=== PATIENT | female | born 1960 | race Caucasian/White ===

== ENCOUNTER → 2017-01-19 | Outpatient (CLI) | payer OTHER | LOC: FIMAGING 09:55 | PROVIDERS: ATTEND Physician Assistant | DX: K80.20 Calculus of gallbladder without cholecystitis without obstruction (principal) ==

== ENCOUNTER → 2017-08-01 | Outpatient (CLI) | payer OTHER | LOC: FIMAGING 14:48 | PROVIDERS: ATTEND Internal Medicine | DX: Z12.31 Encounter for screening mammogram for malignant neoplasm of breast (principal) | CPT/HCPCS: G0202 ==

== ENCOUNTER 2017-08-14 11:09 | Observation (INO) | payer OTHER ==
[2017-08-14] MEDS ORDERED: LORazepam 2 MG/ML INJ ONE (11:56)
[2017-08-14] MEDS ORDERED: LORazepam 2 MG/ML INJ IVP ONE (11:58)
--- NOTE | 2017-08-14 11:58 | EDPHY ---
H & P Time Seen by Provider: 08/14/17 11:44 HPI/ROS: CHIEF COMPLAINT: Seizure, withdrawal HISTORY OF PRESENT ILLNESS: Patient is a 56-year-old female who presents to the emergency department stating "I am withdrawing. "Patient has been chronically taking a large amount of Ativan. Reportedly 30 mg a day. Patient also takes Ambien, Lexapro and Wellbutrin. She ran out of her Ambien and Lexapro. Patient states she has been feeling worse over the past few days. She ran medication because her prescriptions ran out and the doctor would not refill her prescriptions without being seen. She has been unable to get to the doctor's office. She called her daughter this morning. When her daughter arrived the patient was found on the floor. It is unclear how she got there. The patient does not recall. While the daughter was talking to her the patient had seizure-like activity and EMS was called. Patient has a mild headache. She has diffuse body aches. She is nauseated. REVIEW OF SYSTEMS: My complete review of systems is negative except as mentioned in the HPI. Past Medical/Surgical History: Includes diabetes, migraines, PID, hypertension Past surgical history: Pituitary cyst removed Social history: The patient does not smoke use alcohol. Smoking Status: Never smoked Physical Exam: Vitals noted. 37.3, 103/68, 114, 16, 98% on room air GENERAL: Mild acute distress, alert. HEENT: Eyes normal to inspection, normal pharynx, no signs of dehydration. NECK: No thyromegaly, no lymphadenopathy, supple. RESPIRATORY: Clear to auscultation bilaterally, no rales, rhonchi or wheezing. CVS: Regular rate and rhythm, no rubs, murmurs, or gallops. ABDOMEN: Soft, nontender, nondistended, no organomegaly. BACK: Normal to inspection, no CVA tenderness. SKIN: Normal color, no rash, warm, dry. No pallor. EXTREMITIES: No pedal edema, no calf tenderness, no Homans sign or cords, no joint swelling. NEURO/PSYCH: Higher functions: Eyes closed but open to voice. Oriented x3. Normal speech and cognition. Normal mood and affect. Cranial nerves: Normal as tested. Cerebellar: Normal as tested. Good finger to nose, good [id number], normal gait. Peripheral exam: Normal motor exam. Normal sensation. Normal reflexes. Constitutional: Initial Vital Signs Temperature (C) 37.3 C 08/14/17 11:39 Heart Rate 114 H 08/14/17 11:39 Respiratory Rate 16 08/14/17 11:39 Blood Pressure 103/68 08/14/17 11:39 O2 Sat (%) 98 08/14/17 11:39 O2 Delivery Mode Room Air Allergies/Adverse Reactions: codeine [Codeine] Allergy (Verified 01/05/17 14:57) Penicillins Allergy (Verified 01/05/17 14:57) Sulfa (Sulfonamide Antibiotics) Allergy (Verified 01/05/17 14:57) Home Medications: Medication Instructions Recorded Ambien 12/09/10 Ativan 12/09/10 Azithromycin [Zpack 250 mg] 250 mg PO DAILY #6 tab 12/09/10 DDAVP 12/09/10 TRAMADOL HCL 12/09/10 Doxycycline Hyclate 01/05/17 Jinteli 1 mg-5 Mcg Tablet 01/05/17 Lexapro 01/05/17 Metoprolol Tartrate 01/05/17 Nexium 01/05/17 Wellbutrin 100mg (*) 01/05/17 Medical Decision Making - Diagnostics Imaging Results: Imaging Impressions Head CT 08/14/17 11:59 Impression: Mild underlying atrophy, otherwise negative noncontrast CT of the brain. Results called to Dr. Rosy Alexander at 1:49 PM at the time of the interpretation. ED Course/Re-evaluation: In the emergency department I discussed possible etiologies with the patient and her family. I answered all her questions. IV was placed. Laboratory studies obtained. Normal saline 1 L IV for hydration. The patient was given Zofran 4 mg IV for nausea. The patient was given Ativan 1 mg IV for withdrawal. The nursing staff had difficulty obtaining an IV. Because of this patient was given Ativan 2 mg orally. Ultimately a small line was placed the patient's ankle. On recheck the patient was feeling anxious. She was given Ativan 1 mg IV. 13 40: The patient complains of a typical migraine headache per nursing. She requested Maxalt. This is not in our formulary. I went to re-evaluate the patient however Dr. Gaspar from the Hospital service was evaluated the patient because I called him regarding admission. Differential Diagnosis: My differential includes but is not limited to benzodiazepine withdrawal, alcohol withdrawal, epilepsy, electrolyte abnormality, sugar abnormality, DKA, subarachnoid hemorrhage, subdural hematoma, epidural hematoma, CVA - Data Points Laboratory Results: Laboratory Results 08/14/17 12:25 08/14/17 12:25 08/14/17 08/14/17 12:25 12:25 WBC REJ RBC REJ Hgb REJ Hct REJ MCV REJ MCH REJ MCHC REJ RDW REJ Plt Count REJ MPV REJ Neut % (Auto) REJ Lymph % (Auto) REJ Floyd % (Auto) REJ Eos % (Auto) REJ Baso % (Auto) REJ Nucleat RBC Rel Count REJ Absolute Neuts (auto) REJ Absolute Lymphs (auto) REJ Absolute Monos (auto) REJ Absolute Eos (auto) REJ Absolute Basos (auto) REJ Absolute Nucleated RBC REJ Immature Gran % REJ Immature Gran # REJ Sodium 129 mEq/L L mEq/L (134-144) Potassium 4.1 mEq/L mEq/L (3.5-5.2) Chloride 94 mEq/L L mEq/L (97-110) Carbon Dioxide 17 mEq/l L mEq/l (22-31) Anion Gap 18 mEq/L H mEq/L (8-16) BUN 13 mg/dL mg/dL (7-23) Creatinine 0.8 mg/dL mg/dL (0.6-1.0) Estimated GFR > 60 Glucose 119 mg/dL H mg/dL (70-100) Calcium 9.1 mg/dL mg/dL (8.5-10.4) Salicylates < 1.0 mg/dL L mg/dL (2.0-20.0) Acetaminophen < 10 mcg/mL L mcg/mL (10-30) Ethyl Alcohol < 10 mg/dL mg/dL (0-10) Medications Given: Discontinued Medications Sodium Chloride (Ns) 1,000 mls @ 0 mls/hr IV ONCE ONE PRN Reason: Wide Open Stop: 08/14/17 12:48 Last Admin: 08/14/17 12:48 Dose: 1,000 mls Lorazepam (Ativan Injection) 1 mg IVP EDNOW ONE Stop: 08/14/17 11:59 Last Admin: 08/14/17 12:44 Dose: 1 mg Lorazepam (Ativan) 2 mg PO EDNOW ONE Stop: 08/14/17 12:20 Last Admin: 08/14/17 12:20 Dose: 2 mg Ondansetron HCl (Zofran) 4 mg IVP EDNOW ONE Stop: 08/14/17 12:00 Last Admin: 08/14/17 12:35 Dose: 4 mg Departure - Departure Disposition: [facility] Inpatient Acute Clinical Impression: Migraine Benzodiazepine withdrawal Qualifiers: Complication of substance-induced condition: uncomplicated Qualified Code(s): F13.230 - Sedative, hypnotic or anxiolytic dependence with withdrawal, uncomplicated Condition: Good Referrals: Jennifer Millard MD [Primary Care Provider] - As per Instructions
[2017-08-14] MEDS ORDERED: ONDANSETRON 4 MG/2 ML VIAL IVP ONE (11:59)
[2017-08-14] MEDS ORDERED: LORazepam 1 MG TAB ONE (12:11)
[2017-08-14] MEDS ORDERED: LORazepam 1 MG TAB PO ONE (12:19)
--- NOTE | 2017-08-14 12:38 | CPEKG ---
Heart Rate: 104 RR Interval: 577 P-R Interval: 156 QRSD Interval: 88 QT Interval: 384 QTC Interval: 506 P Como: 73 QRS Como: -2 T Wave Como: 73 EKG Severity - BORDERLINE ECG - EKG Impression: SINUS TACHYCARDIA EKG Impression: BORDERLINE T ABNORMALITIES, ANT-LAT LEADS EKG Impression: BORDERLINE PROLONGED QT INTERVAL Electronically Signed By: Rosy Alexander 14-Aug-2017 15:20:40
[2017-08-14] MEDS ORDERED: NS 1,000 ML IV ONE ×2 (12:47→13:52)
[2017-08-14 12:57] LABS: ANION GAP 18 mEq/L (8-16); CALCIUM 9.1 mg/dL (8.5-10.4); CARBON DIOXIDE 17 mEq/l (22-31); CHLORIDE 94 mEq/L (97-110); CREATININE 0.8 mg/dL (0.6-1.0); ETHANOL SERUM < 10 mg/dL (0-10); GLOMERULAR FILTRATION RATE > 60; GLUCOSE 119 mg/dL (70-100); POTASSIUM 4.1 mEq/L (3.5-5.2); SALICYLATE < 1.0 mg/dL (2.0-20.0); SODIUM 129 mEq/L (134-144)
--- NOTE | 2017-08-14 14:10 | PDGENHP ---
History and Physical - Chief Complaint Seizure - History of Present Illness A 48-year-old female with longstanding history of anxiety a presented to the emergency department today after having seizure. Patient does not recall what happened but remembers awaking on the floor. Apparently she has been taking upwards of 40 mg of Ativan per day. He she reports ran out of her prescription and has been off of her med since . Since being off of her Ativan she has been very anxious with some chills. She has tried to quit in "cold turkey "before. She denies any suicidal or homicidal ideation. Her daughter states that she may have aspirated while she seized. She has been on benzodiazepines for approximately 8 years. History Information - Allergies/Home Medication List Allergies/Adverse Reactions: codeine [Codeine] Allergy (Verified 01/05/17 14:57) Penicillins Allergy (Verified 01/05/17 14:57) Sulfa (Sulfonamide Antibiotics) Allergy (Verified 01/05/17 14:57) Home Medications: Ambien 12/09/10 [Last Taken 12/08/10 21:00] Ativan 12/09/10 [Last Taken 12/09/10 07:00] DDAVP 12/09/10 [Last Taken 12/09/10 07:00] TRAMADOL HCL 12/09/10 [Last Taken 12/09/10 07:00] Doxycycline Hyclate 01/05/17 [Last Taken Unknown] Jinteli 1 mg-5 Mcg Tablet 01/05/17 [Last Taken Unknown] Lexapro 01/05/17 [Last Taken Unknown] Metoprolol Tartrate 01/05/17 [Last Taken Unknown] Nexium 01/05/17 [Last Taken Unknown] Wellbutrin 100mg (*) 01/05/17 [Last Taken Unknown] I have personally reviewed and updated: family history, medical history, social history, surgical history Past Medical History: Anxiety, depression, diabetes insipidus, pituitary cyst - Surgical History Additional surgical history: Pituitary cyst resection - Social History Smoking Status: Never smoked Alcohol Use: None Review of Systems Review of Systems: ROS: 10pt was reviewed & negative except for what was stated in HPI & below Physical Exam Physical Exam: Temp Pulse Resp BP Pulse Ox 37.3 C 114 H 16 103/68 98 08/14/17 11:39 08/14/17 11:39 08/14/17 11:39 08/14/17 11:39 08/14/17 11:39 Constitutional: no apparent distress, appears nourished, not in pain, uncomfortable Eyes: PERRL, anicteric sclera, EOMI Ears, Nose, Mouth, Throat: moist mucous membranes, hearing normal, ears appear normal, no oral mucosal ulcers, other (No tongue laceration) Cardiovascular: regular rate and rhythym, no murmur, rub, or gallop, tachycardia , No edema Respiratory: no respiratory distress, no rales or rhonchi, clear to auscultation Gastrointestinal: normoactive bowel sounds, soft, non-tender abdomen, no palpable masses, No guarding, No rebound Genitourinary: no bladder fullness, no bladder tenderness Skin: warm, normal color, no rashes or abrasions, no fluctuance, no induration, No mottled Neurologic: AAOx3, CN II-XII Intact, No facial droop Psychiatric: interacting appropriately, not anxious, not encephalopathic, thought process linear, anxious, No suicidal ideation Lymph, Heme, Immunologic: no cervical LAD, no supraclavicular LAD Lab Data & Imaging Review 08/14/17 12:25 08/14/17 12:25 WBC REJ 08/14/17 12:25 RBC REJ 08/14/17 12:25 Hgb REJ 08/14/17 12:25 Hct REJ 08/14/17 12:25 MCV REJ 08/14/17 12:25 MCH REJ 08/14/17 12:25 MCHC REJ 08/14/17 12:25 RDW REJ 08/14/17 12:25 Plt Count REJ 08/14/17 12:25 MPV REJ 08/14/17 12:25 Neut % (Auto) REJ 08/14/17 12:25 Lymph % (Auto) REJ 08/14/17 12:25 [place] % (Auto) REJ 08/14/17 12:25 Eos % (Auto) REJ 08/14/17 12:25 Baso % (Auto) REJ 08/14/17 12:25 Nucleat RBC Rel Count REJ 08/14/17 12:25 Absolute Neuts (auto) REJ 08/14/17 12:25 Absolute Lymphs (auto) REJ 08/14/17 12:25 Absolute Monos (auto) REJ 08/14/17 12:25 Absolute Eos (auto) REJ 08/14/17 12:25 Absolute Basos (auto) REJ 08/14/17 12:25 Absolute Nucleated RBC REJ 08/14/17 12:25 Immature Gran % REJ 08/14/17 12:25 Immature Gran # REJ 08/14/17 12:25 Sodium 129 mEq/L (134-144) L 08/14/17 12:25 Potassium 4.1 mEq/L (3.5-5.2) 08/14/17 12:25 Chloride 94 mEq/L (97-110) L 08/14/17 12:25 Carbon Dioxide 17 mEq/l (22-31) L 08/14/17 12:25 Anion Gap 18 mEq/L (8-16) H 08/14/17 12:25 BUN 13 mg/dL (7-23) 08/14/17 12:25 Creatinine 0.8 mg/dL (0.6-1.0) 08/14/17 12:25 Estimated GFR > 60 08/14/17 12:25 Glucose 119 mg/dL (70-100) H 08/14/17 12:25 Calcium 9.1 mg/dL (8.5-10.4) 08/14/17 12:25 Salicylates < 1.0 mg/dL (2.0-20.0) L 08/14/17 12:25 Acetaminophen < 10 mcg/mL (10-30) L 08/14/17 12:25 Ethyl Alcohol < 10 mg/dL (0-10) 08/14/17 12:25 Imaging Review: Visualized reviewed the head CT that was negative for hemorrhage Assessment & Plan Assessment: This is a 48-year-old female with history of anxiety, depression, and chronic benzodiazepine use to been on 40 mg of Ativan per day but ran out on presenting with: # benzodiazepine withdrawal seizure # benzodiazepine dependence # history of anxiety and depression # mild hyponatremia with history of diabetes insipidus Plan: 1. Place in observation 2. We will resume Ativan at a dose of 5 mg p.o. three times daily 3. Seizure precautions Disposition: Patient will be monitored for seizures. She will need close outpatient follow-up with plan for benzodiazepine taper with her primary care provider Dr. West
[2017-08-14] MEDS: ACETAMINOPHEN 500 MG TAB PO SCH ×2 (15:26→21:17)
[2017-08-14] MEDS ORDERED: RIZATRIPTAN BENZOATE 10 MG PO PRN (19:07)
[2017-08-14] MEDS ORDERED: traMADol 50 MG TAB PO PRN (19:07)
[2017-08-14] MEDS: DESMOPRESSIN 0.1 MG TAB PO SCH (20:20)
[2017-08-14] MEDS: METOPROLOL TARTRATE 25 MG TAB PO SCH (20:21)
[2017-08-14] MEDS: INDOMETHACIN 25 MG CAP PO SCH (20:21)
[2017-08-14] MEDS ORDERED: NON-FORMULARY NEW DRUG (Zolpidem Tartrate [Ambien 10 Mg] 10 MG) PO SCH (21:00)
[2017-08-14] MEDS ORDERED: ZOLPIDEM TARTRATE 5 MG TAB PO SCH (21:00)
[2017-08-14] MEDS: busPIRone 10 MG TAB PO SCH (21:17)
[2017-08-14] MEDS: LORazepam 1 MG TAB PO SCH (21:17)
[2017-08-14] MEDS ORDERED: SUMAtriptan 6 MG/0.5 ML VIAL SC ONE (23:02)
[2017-08-15] MEDS: LORazepam 1 MG TAB PO SCH ×2 (05:16→15:44)
[2017-08-15 05:20] LABS: ALANINE AMINOTRANSFERASE 24 IU/L (9-52); ALBUMIN 3.5 g/dL (3.5-5.0); ALKALINE PHOSPHATASE 76 IU/L (38-126); ANION GAP 8 mEq/L (8-16); ASPARTATE AMINOTRANSFERASE 23 IU/L (14-46); BILIRUBIN,TOTAL 0.4 mg/dL (0.1-1.4); CALCIUM 8.9 mg/dL (8.5-10.4); CARBON DIOXIDE 26 mEq/l (22-31); CHLORIDE 96 mEq/L (97-110); CREATININE 0.7 mg/dL (0.6-1.0); GLOMERULAR FILTRATION RATE > 60; GLUCOSE 98 mg/dL (70-100); POTASSIUM 4.1 mEq/L (3.5-5.2); SODIUM 130 mEq/L (134-144); TOTAL PROTEIN 5.8 g/dL (6.3-8.2)
[2017-08-15 05:54] VITALS: RESP 18
[2017-08-15] MEDS: INDOMETHACIN 25 MG CAP PO SCH (08:11)
[2017-08-15] MEDS: DESMOPRESSIN 0.1 MG TAB PO SCH (08:11)
[2017-08-15] MEDS: METOPROLOL TARTRATE 25 MG TAB PO SCH (08:12)
[2017-08-15] MEDS: ACETAMINOPHEN 500 MG TAB PO SCH (08:13)
[2017-08-15] MEDS: busPIRone 10 MG TAB PO SCH (08:13)
[2017-08-15] MEDS ORDERED: PANTOPRAZOLE SODIUM 40 MG TAB PO SCH (09:00)
[2017-08-15] MEDS ORDERED: NORETHINDRONE AC ETH ESTRADIOL PO SCH (09:00)
[2017-08-15] MEDS ORDERED: NON-FORMULARY NEW DRUG (Escitalopram Oxalate [Lexapro] 20 MG) PO SCH (09:00)
[2017-08-15] MEDS ORDERED: ENOXAPARIN 40 MG/0.4 ML SYR SC SCH (09:00)
[2017-08-15] MEDS ORDERED: MULTIVITAMINS 1 EACH TAB PO SCH (09:00)
[2017-08-15] MEDS ORDERED: NON-FORMULARY NEW DRUG (Esomeprazole Magnesium [Nexium] 20 MG) PO SCH (09:00)
[2017-08-15] MEDS ORDERED: ESCITALOPRAM OXALATE 10 MG TAB PO SCH (09:00)
--- NOTE | 2017-08-15 11:33 | ASMTCMCOM ---
CM Note CM Note Notes: Chart reviewed. Met with patient, her sister and mother. Patient lives with and feels she has good support but wishes to seek care with psychiatry . Call to Moraima Becker RN for support. Patient states she had appointment today with mental health provider. She appears to be sincere in her realization that her situation is problematic and she wants to seek some resolution to the problems. CM to follow. Date Signed: 08/15/2017 11:32 AM Electronically Signed By:Court Reyes RN
[2017-08-15 12:18] VITALS: TEMP 97.8; O2SAT 95
[2017-08-15 13:54] VITALS: BP 163/101; PULSE 93
--- NOTE | 2017-08-15 17:22 | ASDISCHSUM ---
Discharge Information Plan Status:Home with No Needs Medically Cleared to Leave: Discharge Date:08/15/2017 03:52 PM CM D/C Disposition:Home, Routine, Self-Care ADT D/C Disposition:Home, Routine, Self-Care Projected Discharge Date:08/15/2017 03:52 PM Transportation at D/C:Family Discharge Delay Reason: Follow-Up Date:08/15/2017 03:52 PM Discharge Slot: Final Diagnosis: Placement Information Patient Contact Information Contact Name:JOSE MANUEL Relationship: Address:[address] City:[place] Phone: [facility]/Zip Code:[place] [address] Email: Financial Information Financial Class:HMO and PPO Plans Primary Plan Desc:[employer] REYNAGA Primary Plan Number:[id number] Secondary Plan Desc: Secondary Plan Number: Assessment Information LACE LACE Acuity / Level of Care Answers: Was the patient admitted to hospital via the emergency department? Yes: Emergency dept visits in Answers: 0 last 6 months Score: 3 Date Signed: 08/15/2017 11:02 AM Electronically Signed By:Court Reyes RN [facility] Progress Note CM Note CM Note Notes: Chart reviewed. Met with patient, her sister and mother. Patient lives with and feels she has good support but wishes to seek care with psychiatry . Call to Moraima Becker RN for support. Patient states she had appointment today with mental health provider. She appears to be sincere in her realization that her situation is problematic and she wants to seek some resolution to the problems. CM to follow. Date Signed: 08/15/2017 11:32 AM Electronically Signed By:Court Reyes RN Intervention Information
--- NOTE | 2017-08-16 03:09 | GDS ---
[f rep st] DISCHARGE SUMMARY DISCHARGE DIAGNOSES: 1. Benzodiazepine withdrawal-induced seizure. 2. Benzodiazepine dependency. 3. Anxiety and depression. 4. Hyponatremia. 5. Hypertension. STUDIES AND PROCEDURES DONE: CT of the head. PHYSICAL EXAMINATION: GENERAL: The patient is alert. VITAL SIGNS: Afebrile, 36.6, pulse is 93, respiratory rate is 18, blood pressure is 150/89. She is saturating 95% on room air. I have seen and evaluated the patient on the day of discharge. HOSPITAL COURSE: The patient presented to the emergency room after suffering a seizure. She was evaluated and diagnosed with: 1. Benzodiazepine withdrawal seizure. Patient has had a longstanding history of benzodiazepine use with Ativan. It is unclear the amount of milligrams she takes on a daily basis. She is a poor historian regarding this, however she cold-turkeyed her Ativan secondary to running out of her prescription. She did experience a seizure that is felt to be secondary to her benzodiazepine withdrawal. She has had no further seizure activity identified in the hospital setting. She has been reinitiated on Ativan and will continue in the outpatient setting. Weaning off Ativan. 2. Benzodiazepine dependency. I have discussed this with her primary care physician, Dr. West I will provide her prescription for Ativan at the time of disposition to prevent any further withdrawal symptoms and will defer to her primary care physician, as well as her psychiatric nurse practitioner, for further recommendations regarding her titration off benzodiazepines. 3. History of anxiety and depression. The patient is not suicidal. She has contracted for safety. She has no intention of harming herself or others. She has an appointment with the psychiatric nurse practitioner, for further evaluation and Followup. 4. Mild hyponatremia. This is stable. DISPOSITION: The patient will be discharged home with her family. I spent a lengthy time with her and her family regarding their education and need form follow up in the outpatient setting. She is hypertensive here in the hospital setting; however, we will defer from adding any further antihypertensive medications given the acute anxiety of the hospital setting. She will follow up with Dr. West, as well as psychiatric nurse practitioner with whom she has an appointment. She has been educated that if she consumes all of her benzodiazepines, to return to the emergency room for further recommendations. I have educated her at length that she should take her medications as scheduled and prescribed and no more or no less. She does understand this and is in agreement with this plan. There are no pending studies. DISCHARGE MEDICATIONS: Please refer to EMR form. I have provided a prescription for patient of Ativan 1 mg p.o. t.i.d., #14; as well as Lexapro 20 mg daily, #10. /[id number]/MODL MTDD
[2017-08-18] MEDS ORDERED: INDOMETHACIN 25 MG CAP PO SCH (09:00)
== END 2017-08-15 15:52 | disposition home or self-care (01) ==
LOC: EEVIPCON 11:09 → F3N 14:43
PROVIDERS: ADMIT Family Medicine; ATTEND Family Medicine
DX: F13.239 Sedative, hypnotic or anxiolytic dependence with withdrawal, unspecified (principal); R56.9 Unspecified convulsions; F41.9 Anxiety disorder, unspecified; F32.9 Major depressive disorder, single episode, unspecified; E87.1 Hypo-osmolality and hyponatremia; I10 Essential (primary) hypertension
CPT/HCPCS: 70450; 92523; 93005; 97161; 97165; G0378; 80305; G0480; J1650; J2060; J2405; J3030

== ENCOUNTER 2018-04-06 14:59 | Inpatient (IN) | payer OTHER ==
--- NOTE | 2018-04-06 15:38 | EDPHY ---
H & P Stated Complaint: L leg swelling Time Seen by Provider: 04/06/18 15:29 HPI/ROS: CHIEF COMPLAINT: Left leg swelling and pain HISTORY OF PRESENT ILLNESS: 57-year-old female with no prior history of DVT or PE arrives via private vehicle complaining of atraumatic left lower extremity pain, swelling. Able to bear weight. No trauma. No immobilization. No travel. No chest pain. No dyspnea. No discoloration. No paresthesia. No back pain. REVIEW OF SYSTEMS: A ten point review of systems was performed and is negative with the exception of the items mentioned in the HPI PAST MEDICAL & SURGICAL HISTORY: Anxiety. Depression. Diabetes insipidus. SOCIAL HISTORY: Nonsmoker PHYSICAL EXAM (Prior to examination, patient consented to physical exam, hands were washed and my usual and customary physical exam procedures followed) 1) GENERAL: Well-developed, well-nourished, alert and oriented. Appears to be in no acute distress. 2) HEAD: Normocephalic, atraumatic 3) HEENT: Pupils equal, round, reactive to light bilaterally. Sclera anicteric. 4) NECK: Full range of motion, no meningeal signs. 5) LUNGS: Clear auscultation bilaterally, no wheezes, no rhonchi, no retractions. 6) HEART: Regular rate and rhythm, no murmur, no heave, no gallop. 7) ABDOMEN: No guarding, no rebound, no focal tenderness, 8) MUSCULOSKELETAL: Left lower extremity: Asymmetrical edema, tenderness, firmness in the left calf. DP and PT pulses are Doppler appreciable with brisk capillary refill normal color normal temperature distally. 9) BACK: No CVA tenderness, no midline vertebral tenderness, no fluctuance, no step-off, no obvious trauma, no visual or palpable abnormality. 10) SKIN: No rash, no petechiae. 11) Psychiatric: Patient is oriented X 3, there is no agitation. DIFFERENTIAL DIAGNOSIS: In no particular order include but limited to compartment syndrome, DVT, arterial thrombus. - Personal History Current Tetanus/Diphtheria Vaccine: Unsure Current Tetanus Diphtheria and Acellular Pertussis (TDAP): Unsure - Medical/Surgical History Hx Asthma: No Hx Chronic Respiratory Disease: No Hx Diabetes: No Hx Cardiac Disease: No Hx Renal Disease: No Hx Cirrhosis: No Hx Alcoholism: No Hx HIV/AIDS: No Other PMH: diabetes insipidus. migraines. pid. pituatry cyst removed. htn, depression - Social History Smoking Status: Never smoked Constitutional: Initial Vital Signs Temperature (C) 36.6 C 04/06/18 15:12 Heart Rate 73 04/06/18 15:12 Respiratory Rate 16 04/06/18 15:12 Blood Pressure 99/57 L 04/06/18 15:12 O2 Sat (%) 96 04/06/18 15:12 O2 Delivery Mode Room Air Allergies/Adverse Reactions: codeine [Codeine] Allergy (Verified 04/06/18 15:08) Penicillins Allergy (Verified 04/06/18 15:08) Sulfa (Sulfonamide Antibiotics) Allergy (Verified 04/06/18 15:08) Home Medications: Medication Instructions Recorded Clonazepam 04/06/18 Desmopressin 04/06/18 Lamictal 04/06/18 Lyrica 04/06/18 Metoprolol Tartrate 04/06/18 Norethin-Eth Estrad 1 mg-5 Mcg 04/06/18 Sertraline HCl 04/06/18 busPIRone 04/06/18 traMADol 04/06/18 Medical Decision Making - Diagnostics Imaging Results: Imaging Impressions Extremity Venous Study 04/06/18 15:29 Impression: Thrombosis of the visualized deep and superficial venous structures in the left lower extremity. Findings were discussed with Noemy Mensah PA-C at 16:01, on 04/06/2018. Images reviewed myself ED Course/Re-evaluation: 4:17 p.m.: Patient noted to have complete occlusion of deep and superficial veins lower extremity on left leg. No known history of May-Thurner. Consultation with interventional radiology Dr. Kincaid who recommends lower extremity venogram, initiation of heparin therapy and he will consult for possible thrombolysis. Discussed case with Dr. Mitch Teague in the ER. Will plan on admission to hospitalist. Further discussion with the patient she denies history of mobilization but does note that she leads a by and large sedentary lifestyle secondary to history of chronic pelvic pain, chronic back pain, she describes her typical day involved waking up between 10am-11am, letting the dog out and sitting on the sofa for the remainder the day watching TV, getting up to eat and to use the restroom. 4:48 p.m.: Phone consultation with hospitalist Dr. Lindsay who will admit patient primarily - Data Points Laboratory Results: Laboratory Results 04/06/18 16:16 04/06/18 16:16 04/06/18 04/06/18 04/06/18 16:16 16:16 16:16 WBC 15.25 10^3/uL H 10^3/uL (3.80-9.50) RBC 4.24 10^6/uL 10^6/uL (4.18-5.33) Hgb 12.2 g/dL L g/dL (12.6-16.3) Hct 37.7 % L % (38.0-47.0) MCV 88.9 fL fL (81.5-99.8) MCH 28.8 pg pg (27.9-34.1) MCHC 32.4 g/dL g/dL (32.4-36.7) RDW 14.8 % % (11.5-15.2) Plt Count 229 10^3/uL 10^3/uL (150-400) MPV 10.6 fL fL (8.7-11.7) Neut % (Auto) 88.1 % H % (39.3-74.2) Lymph % (Auto) 6.8 % L % (15.0-45.0) [place] % (Auto) 4.1 % L % (4.5-13.0) Eos % (Auto) 0.1 % L % (0.6-7.6) Baso % (Auto) 0.2 % L % (0.3-1.7) Nucleat RBC Rel Count 0.0 % % (0.0-0.2) Absolute Neuts (auto) 13.45 10^3/uL H 10^3/uL (1.70-6.50) Absolute Lymphs (auto) 1.04 10^3/uL 10^3/uL (1.00-3.00) Absolute Monos (auto) 0.62 10^3/uL 10^3/uL (0.30-0.80) Absolute Eos (auto) 0.01 10^3/uL L 10^3/uL (0.03-0.40) Absolute Basos (auto) 0.03 10^3/uL 10^3/uL (0.02-0.10) Absolute Nucleated RBC 0.00 10^3/uL 10^3/uL (0-0.01) Immature Gran % 0.7 % % (0.0-1.1) Immature Gran # 0.10 10^3/uL 10^3/uL (0.00-0.10) PT 14.7 SEC SEC (12.0-15.0) INR 1.13 (0.83-1.16) APTT 24.6 SEC SEC (23.0-38.0) Sodium 135 mEq/L mEq/L (135-145) Potassium 5.3 mEq/L H mEq/L (3.3-5.0) Chloride 100 mEq/L mEq/L (97-110) Carbon Dioxide 20 mEq/l L mEq/l (22-31) Anion Gap 15 mEq/L mEq/L (8-16) BUN 22 mg/dL mg/dL (7-23) Creatinine 1.2 mg/dL H mg/dL (0.6-1.0) Estimated GFR 46 Glucose 100 mg/dL mg/dL (70-100) Calcium 9.6 mg/dL mg/dL (8.5-10.4) Departure - Departure Disposition: [facility] Inpatient Acute Clinical Impression: History of diabetes insipidus DVT (deep venous thrombosis) Qualifiers: DVT location: lower extremity Affected thrombotic vein of extremity: popliteal Chronicity: acute Laterality: left Qualified Code(s): I82.432 - Acute embolism and thrombosis of left popliteal vein Condition: Fair Referrals: Jennifer Millard MD [Primary Care Provider] - As per Instructions
[2018-04-06] MEDS ORDERED: HEPARIN 10,000 UNIT/10 ML MDV (1,000 UNIT/ML) IVP ONE (16:20)
[2018-04-06] MEDS ORDERED: HEPARIN/DEXTROSE 500 ML IV ONE (16:20)
[2018-04-06 16:30] LABS: PLATELET COUNT 229 10^3/uL (150-400)
[2018-04-06] MEDS ORDERED: IOPAMIDOL (ISOVUE 370) 100 ML BTL IV ONE (16:34)
[2018-04-06 16:40] LABS: INR 1.13 (0.83-1.16); PROTIME(PATIENT) 14.7 SEC (12.0-15.0)
[2018-04-06] MEDS ORDERED: NS 1,000 ML IV ONE (16:45)
--- NOTE | 2018-04-06 17:31 | CPEKG ---
Heart Rate: 78 RR Interval: 769 P-R Interval: 148 QRSD Interval: 84 QT Interval: 380 QTC Interval: 433 P Wickett: 52 QRS [place]: -6 T Wave [place]: 21 EKG Severity - BORDERLINE ECG - EKG Impression: SINUS RHYTHM EKG Impression: BORDERLINE T ABNORMALITIES, ANTERIOR LEADS Electronically Signed By: Mitch Teague 06-Apr-2018 18:01:05
[2018-04-06] MEDS ORDERED: ACETAMINOPHEN 325 MG TAB PO PRN (18:24)
[2018-04-06] MEDS ORDERED: ONDANSETRON 4 MG/2 ML VIAL IVP PRN (18:24)
[2018-04-06] MEDS ORDERED: ONDANSETRON DISINTEGRATING 4 MG TAB PO PRN (18:24)
[2018-04-06] MEDS ORDERED: HEPARIN/DEXTROSE 500 ML IV SCH ×2 (18:30→19:00)
--- NOTE | 2018-04-06 18:35 | PDGENHP ---
History and Physical - Chief Complaint left leg swelling and pain - History of Present Illness 57-year-old female with no prior history of DVT or PE arrives via private vehicle complaining of atraumatic left lower extremity pain, swelling. Able to bear weight. No trauma. No immobilization. No travel. No chest pain. No dyspnea. No discoloration. No paresthesia. No back pain. Doppler of LE shows extensive left sided occlusive and non occlusive clot. Angio Abdomen with runoff shows non occlusive IVC VTE and subsegmental P.E. PAST MEDICAL & SURGICAL HISTORY: Anxiety. Depression. Diabetes insipidus. pituatry cyst removed. htn, depression SOCIAL HISTORY: Nonsmoker FMHx: non contributory History Information - Allergies/Home Medication List Allergies/Adverse Reactions: codeine [Codeine] Allergy (Verified 04/06/18 15:08) Penicillins Allergy (Verified 04/06/18 15:08) Sulfa (Sulfonamide Antibiotics) Allergy (Verified 04/06/18 15:08) Home Medications: Desmopressin [DDAVP 0.1 mg (*)] 0.1 mg PO BID@04/06/18 [Last Taken ] busPIRone [Buspar (*)] 10 mg PO BID@04/06/18 [Last Taken 04/06/18 10:00] I have personally reviewed and updated: medical history, social history Past Medical History: Anxiety, depression, diabetes insipidus, pituitary cyst - Surgical History Additional surgical history: Pituitary cyst resection - Social History Smoking Status: Never smoked Review of Systems Review of Systems: ROS: 10pt was reviewed & negative except for what was stated in HPI & below Physical Exam Physical Exam: Temp Pulse Resp BP Pulse Ox 36.8 C 79 12 136/77 H 96 04/06/18 18:02 04/06/18 18:02 04/06/18 18:02 04/06/18 18:02 04/06/18 18:02 Constitutional: no apparent distress Eyes: PERRL Ears, Nose, Mouth, Throat: moist mucous membranes, hearing normal Cardiovascular: regular rate and rhythym, edema (left sided) Respiratory: no respiratory distress, no rales or rhonchi, clear to auscultation Gastrointestinal: normoactive bowel sounds, soft, non-tender abdomen Skin: warm Neurologic: AAOx3 Psychiatric: interacting appropriately, not anxious, not encephalopathic Lymph, Heme, Immunologic: No petechiae Lab Data & Imaging Review 04/06/18 16:16 04/06/18 16:16 WBC 15.25 10^3/uL (3.80-9.50) H 04/06/18 16:16 RBC 4.24 10^6/uL (4.18-5.33) 04/06/18 16:16 Hgb 12.2 g/dL (12.6-16.3) L 04/06/18 16:16 Hct 37.7 % (38.0-47.0) L 04/06/18 16:16 MCV 88.9 fL (81.5-99.8) 04/06/18 16:16 MCH 28.8 pg (27.9-34.1) 04/06/18 16:16 MCHC 32.4 g/dL (32.4-36.7) 04/06/18 16:16 RDW 14.8 % (11.5-15.2) 04/06/18 16:16 Plt Count 229 10^3/uL (150-400) 04/06/18 16:16 MPV 10.6 fL (8.7-11.7) 04/06/18 16:16 Neut % (Auto) 88.1 % (39.3-74.2) H 04/06/18 16:16 Lymph % (Auto) 6.8 % (15.0-45.0) L 04/06/18 16:16 George % (Auto) 4.1 % (4.5-13.0) L 04/06/18 16:16 Eos % (Auto) 0.1 % (0.6-7.6) L 04/06/18 16:16 Baso % (Auto) 0.2 % (0.3-1.7) L 04/06/18 16:16 Nucleat RBC Rel Count 0.0 % (0.0-0.2) 04/06/18 16:16 Absolute Neuts (auto) 13.45 10^3/uL (1.70-6.50) H 04/06/18 16:16 Absolute Lymphs (auto) 1.04 10^3/uL (1.00-3.00) 04/06/18 16:16 Absolute Monos (auto) 0.62 10^3/uL (0.30-0.80) 04/06/18 16:16 Absolute Eos (auto) 0.01 10^3/uL (0.03-0.40) L 04/06/18 16:16 Absolute Basos (auto) 0.03 10^3/uL (0.02-0.10) 04/06/18 16:16 Absolute Nucleated RBC 0.00 10^3/uL (0-0.01) 04/06/18 16:16 Immature Gran % 0.7 % (0.0-1.1) 04/06/18 16:16 Immature Gran # 0.10 10^3/uL (0.00-0.10) 04/06/18 16:16 PT 14.7 SEC (12.0-15.0) 04/06/18 16:16 INR 1.13 (0.83-1.16) 04/06/18 16:16 APTT 24.6 SEC (23.0-38.0) 04/06/18 16:16 Sodium 135 mEq/L (135-145) 04/06/18 16:16 Potassium 5.3 mEq/L (3.3-5.0) H 04/06/18 16:16 Chloride 100 mEq/L (97-110) 04/06/18 16:16 Carbon Dioxide 20 mEq/l (22-31) L 04/06/18 16:16 Anion Gap 15 mEq/L (8-16) 04/06/18 16:16 BUN 22 mg/dL (7-23) 04/06/18 16:16 Creatinine 1.2 mg/dL (0.6-1.0) H 04/06/18 16:16 Estimated GFR 46 04/06/18 16:16 Glucose 100 mg/dL (70-100) 04/06/18 16:16 Calcium 9.6 mg/dL (8.5-10.4) 04/06/18 16:16 Magnesium 2.4 mg/dL (1.6-2.3) H 04/06/18 16:16 Assessment & Plan Assessment: #DVT (deep venous thrombosis) #P.E. #possible May Thurner Syndrome #Leukocytosis, likely reactive #Acute Kidney Injury #Hyperkalemia #History of diabetes insipidus Plan: Heparin Drip IR to perform thrombolysis tomorrow NPO at midnight VS are stable will get a TTE to access cardiac function, right strain if becomes symptomatic, consider CTA chest to determine extent of clot. Hold off tonight given contrast already given and not symptomatic IVF given CHARAN, will monitor closely due to contrast Mg reviewed and elevated slightly full code total critical care time is 65 mins managing patient with acute and significant VTE. D/W ER staff and IR
[2018-04-06] MEDS ORDERED: HEPARIN 10,000 UNIT/10 ML MDV (1,000 UNIT/ML) IVP PRN (18:58)
--- NOTE | 2018-04-06 19:13 | PDCONSULT ---
Emg Technician Note: Interventional Radiology Consult Note: Patient is a 57 yo F who was in her usual state of health until yesterday when she noted that her left leg had become swollen and painful. Ultrasound showed occlusive thrombus throughout her LLE and CTV confirmed findings and suggested MTS as the etiology. There is also a subsegmental PE and thrombus in the inferior IVC. On exam, her LLE is significantly swollen and she finds it painful to move. No evidence of phlegmasia at this time. Recommendations: 1. Continue heparin drip. 2. Plan for CDT tomorrow AM. Will need ICU bed for tomorrow night. NPO after midnight. 3. Obtain fibrinogen levels and PTT in the morning.
[2018-04-06] MEDS: NS 1,000 ML IV SCH (19:14)
[2018-04-06] MEDS ORDERED: traMADol 50 MG TAB PO PRN (20:34)
[2018-04-06] MEDS: busPIRone 10 MG TAB PO SCH (21:18)
[2018-04-06] MEDS: PREGABALIN 100 MG CAP PO SCH (21:18)
[2018-04-06] MEDS: DESMOPRESSIN 0.1 MG TAB PO SCH (21:18)
[2018-04-06] MEDS: METOPROLOL TARTRATE 50 MG TAB PO SCH (21:19)
[2018-04-06] MEDS: clonazePAM 0.5 MG TAB PO SCH (21:19)
[2018-04-07] MEDS: ZOLPIDEM TARTRATE 5 MG TAB PO PRN ×2 (00:57→21:34)
[2018-04-07 05:53] LABS: PLATELET COUNT 199 10^3/uL (150-400)
[2018-04-07] MEDS: clonazePAM 0.5 MG TAB PO SCH ×3 (08:03→21:18)
[2018-04-07] MEDS: busPIRone 10 MG TAB PO SCH ×2 (08:04→21:42)
[2018-04-07] MEDS: PREGABALIN 100 MG CAP PO SCH ×2 (08:04→21:42)
[2018-04-07] MEDS: DESMOPRESSIN 0.1 MG TAB PO SCH ×2 (08:05→21:17)
[2018-04-07] MEDS: SERTRALINE HCL 100 MG TAB PO SCH (08:05)
[2018-04-07] MEDS: lamoTRIgine 100 MG TAB PO SCH (08:07)
[2018-04-07] MEDS: METOPROLOL TARTRATE 50 MG TAB PO SCH ×2 (09:22→21:17)
[2018-04-07] MEDS ORDERED: HEPARIN 10,000 UNIT/10 ML MDV (1,000 UNIT/ML) IVP PRN (09:50)
[2018-04-07] MEDS ORDERED: ALTEPLASE 2 MG VIAL IVP PRN ×2 (09:50→10:49)
[2018-04-07] MEDS ORDERED: GLUCAGON HCL 1 MG VIAL IVP PRN (09:50)
[2018-04-07] MEDS ORDERED: PROTAMINE SULFATE 50 MG/5 ML VIAL IVP PRN (09:50)
[2018-04-07] MEDS ORDERED: MEPERIDINE 25 MG/ML SYR IVP PRN (09:50)
[2018-04-07] MEDS ORDERED: MIDAZOLAM 2 MG/2 ML VIAL IVP PRN (09:50)
[2018-04-07] MEDS ORDERED: FLUMAZENIL 0.5 MG/5 ML MDV IVP PRN (09:50)
[2018-04-07] MEDS ORDERED: NALOXONE HCL 0.4 MG/ML INJ IVP PRN (09:50)
[2018-04-07] MEDS ORDERED: fentaNYL 100 MCG/2 ML INJ IVP PRN (09:50)
[2018-04-07 10:19] LABS: INR 1.25 (0.83-1.16); PROTIME(PATIENT) 15.9 SEC (12.0-15.0)
--- NOTE | 2018-04-07 10:41 | PDMN ---
Medical Necessity Medical necessity: MCG: M290 PE and M350 DVT of LE, A-4 days. 57 y/o w/ extensive left side occlusive and non occlusive clot. Abdomen angoi shows non occlusive IVC VTE and subsegmental PE. hyperkalemic (K5.3). Acute kidney injury (Creat 1.2). On heparin gtt. IR consult, thrombolysis procedure scheduled for next day. TTE pending to assess cardiac function. Hx diabetes and HTN. Anticipate >2MN for continued monitoring and treatment.
[2018-04-07] MEDS ORDERED: FLUMAZENIL 0.5 MG/5 ML MDV IVP ONE (11:27)
[2018-04-07] MEDS ORDERED: NALOXONE HCL 0.4 MG/ML INJ ONE (11:27)
[2018-04-07] MEDS ORDERED: fentaNYL 100 MCG/2 ML INJ ONE (11:27)
[2018-04-07] MEDS ORDERED: MIDAZOLAM 2 MG/2 ML VIAL ONE (11:28)
--- NOTE | 2018-04-07 11:42 | ECHO ---
[email or web address] [address] Main: [phone] Fax: Transthoracic Echocardiogram Name: LAINE SIDHU MR#: [id number] Study Date: 04/07/2018 Study Time: 08:00 AM Date of : 1960 Age: 57 year(s) Height: 160 cm (63 in.) Weight: 63.96 kg (141 lb.) BSA: 1.67 m2 Gender: Female Examination: Echo Indication: right heart strain? Image Quality: Adequate Contrast: Requested by: Aren Lindsay BP: 103 mmHg/50 mmHg Heart Rate: Rhythm: Indication: right heart strain? Procedure Staff Statistical Assistant: Pamela Amaya RDCS Reading Physician: Hector Foley MD Requesting Provider: Conclusions: Normal size left ventricle. Normal global systolic LV function. EF is 61 %. No regional wall motion abnormality. Normal diastolic LV function. Trivial mitral valve regurgitation. Trivial to mild tricuspid valve regurgitation. Right ventricular systolic pressure measures 28mmHg. Measurements: Chambers Valvular Assessment AV/MV Valvular Assessment TV/PV Normal Normal Normal Name Value Range Name Value Range Name Value Range Ao Ellen (MM): 2.8 cm (2.2 cm-3.7 AV Vmax: 1.22 m/s (1 m/s-1.7 TR Vmax: 2.38 mm/s ( - ) cm) m/s) TR PGmax: 23 mmHg ( - ) IVSd (2D): 0.7 cm (0.6 cm-1.1 AV maxP mmHg ( - ) syst. PAP: 28 mmHg ( - ) cm) LVOT Vmax: 1.07 m/s (0.7 m/s-1.1 PV Vmax: 0.86 m/s (0.6 m/s-0.9 LVDd (2D): 4.1 cm (3.9 cm-5.3 m/s) m/s) cm) MV E Vmax: 0.68 m/s ( - ) PV PGmax: 3 mmHg ( - ) LVDs (2D): 2.8 cm (2.1 cm-4 MV A Vmax: 0.58 m/s ( - ) cm) MV E/A: 1.17 ( - ) LVPWd (2D): 0.6 cm ( - ) LVEF (BP): 61 % (>=55 %) RVDd(2D): 2.7 cm (1.9 cm-3.8 cmmm) Continued Measurements: Chambers Valvular Assessment AV/MV Valvular Assessment TV/PV Name Value Name Value Name Value Patient: LAINE SIDHU Study Date: 04/07/2018 Page 1 of 2 08:00 AM LADs Lon.7 cm MV DecTime: 204 m/s CVP (est.): 5 mmHg LA Area: 14.2 cm2 MV E' Septal: 0.08 m/s LA Volume: 39 ml MV E/E' Septal: 8.00 LA Volume Index: 23.4 ml/m2 MV E/E' Lateral: 7.00 TAPSE: 2.1 cm RA Area: 13.0 cm2 Additional Vessels Name Value Ao Ascendin.9 cm Findings: Left Ventricle: Normal size left ventricle. No LV hypertrophy. Normal global systolic LV function. EF is 61 %. No regional wall motion abnormality. Normal diastolic LV function. Right Ventricle: Normal size right ventricle. Normal RV function. Left Atrium: The left atrium is normal in size. Right Atrium: The right atrium is normal in size. Mitral Valve: The mitral valve is normal in appearance and function. Trivial mitral valve regurgitation. No mitral stenosis is present. Aortic Valve: The aortic valve is normal in appearance and function. The aortic valve is tri-leaflet. There is no aortic valve regurgitation. No aortic valve stenosis is present. Tricuspid Valve: The tricuspid valve is normal in appearance and function. Trivial to mild tricuspid valve regurgitation. Right ventricular systolic pressure measures 28mmHg. The pulmonary artery pressure is normal. Pulmonic Valve: The pulmonic valve is normal in appearance and function. There is no pulmonic regurgitation seen. Aorta: The aorta is normal. Normal size aortic root measuring 2.8 cm. Normal size ascending aorta measuring 2.9 cm. IVC: Normal size and course of the IVC. Pericardium: No pericardial effusion. (No Signature Object) Patient: LAINE SIDHU Study Date: 04/07/2018 Page 2 of 2 08:00 AM [id number]
--- NOTE | 2018-04-07 12:02 | HOSPPROG ---
Hospitalist Progress Note Assessment/Plan: #DVT (deep venous thrombosis) #P.E. #possible May Thurner Syndrome #Leukocytosis, likely reactive #Acute Kidney Injury, resolved #Hyperkalemia, resolved #History of diabetes insipidus Plan: Heparin Drip IR to perform thrombolysis today, will need an ICU bed after PICC line NPO full code Subjective: no cp or sob. no n/v. Objective: Vital Signs Temp Pulse Resp BP Pulse Ox 36.8 C 80 16 116/66 96 04/07/18 11:07 04/07/18 11:54 04/07/18 11:54 04/07/18 11:07 04/07/18 11:54 Laboratory Results 04/07/18 04:27 04/07/18 04:27 04/06/18 04/07/18 04/08/18 05:59 05:59 05:59 Intake Total 1000 Balance 1000 PT 15.9 SEC (12.0-15.0) H 04/07/18 08:45 INR 1.25 (0.83-1.16) H 04/07/18 08:45 - Physical Exam Constitutional: no apparent distress Eyes: PERRL, EOMI Ears, Nose, Mouth, Throat: moist mucous membranes, hearing normal Cardiovascular: regular rate and rhythym, edema (LLE) Respiratory: no respiratory distress, no rales or rhonchi, clear to auscultation Gastrointestinal: normoactive bowel sounds, soft, non-tender abdomen Skin: warm Neurologic: AAOx3 Psychiatric: interacting appropriately, not anxious, not encephalopathic Lymph, Heme, Immunologic: No petechiae ICD10 Worksheet Patient Problems: Problems Problem Status Onset DVT (deep venous thrombosis) Acute History of diabetes insipidus Acute Benzodiazepine withdrawal Acute Migraine Acute
--- NOTE | 2018-04-07 12:03 | PDRADPRE ---
Radiology History & Physical Indication for procedure: thromboembolism Home medications: Desmopressin [DDAVP 0.1 mg (*)] 0.1 mg PO BID@04/06/18 [Last Taken ] Metoprolol Tartrate [Metoprolol Tartrate] 50 mg PO BID@,04/06/18 [Last Taken 04/05/18] Norethindrone AC-Eth Estradiol [Norethin-Eth Estrad 1 mg-5 Mcg] 1 each PO DAILY@ 219904/06/18 [Last Taken 04/05/18] Pregabalin [Lyrica 100mg (*)] 100 mg PO BID@04/06/18 [Last Taken 04/06/18 10:00] RX: clonazePAM [Klonopin (*)] 0.5 mg PO TID@,,04/06/18 [Last Taken ] RX: traMADol [Ultram 50 mg (*)] 50 mg PO Q4-6PRN PRN 04/06/18 [Last Taken 12:00] Sertraline HCl [Zoloft 100mg (*)] 150 mg PO DAILY 04/06/18 [Last Taken 04/05/18 22:00] busPIRone [Buspar (*)] 10 mg PO BID@04/06/18 [Last Taken 04/06/18 10:00] lamoTRIgine [LamICTAL 100 MG (*)] 200 mg PO DAILY@04/06/18 [Last Taken 10:00] Allergies/Adverse Reactions: codeine [Codeine] Allergy (Verified 04/06/18 19:34) Fast Heart Rate Penicillins Allergy (Verified 04/06/18 15:08) Sulfa (Sulfonamide Antibiotics) Allergy (Verified 04/06/18 19:34) Rash Mental status: A&Ox3 Heart exam: regular rate and rhythm Mallampati Score: Class 2 (ASA 2)
--- NOTE | 2018-04-07 12:34 | ASMTCMCOM ---
CM Note CM Note Notes: Pt lives at home w/her , she came to the ER with leg pain. Pt has a clot in her leg and will be going to IR for a procedure and then to ICU. PT/OT will evaluate, CM w/f. DC Plan: TBD Date Signed: 04/07/2018 12:34 PM Electronically Signed By:Moraima Thomas RN
[2018-04-07] MEDS ORDERED: LORazepam 1 MG TAB PO PRN (13:05)
[2018-04-07] MEDS ORDERED: PROMETHAZINE HCL 25 MG/ML INJ IVP PRN (13:05)
[2018-04-07] MEDS ORDERED: HEPARIN/DEXTROSE 500 ML IV SCH (13:15)
--- NOTE | 2018-04-07 13:18 | PDRADPN ---
Radiology Procedure Note Date of Procedure: 04/07/18 Radiologist: Joy Kincaid Pre-op Diagnosis: LLE DVT Post-op Diagnosis: Same Procedure: Day 1 thrombolysis, insertion of EKOS catheter Inf/Abcess present in the surg proc area at time of surgery?: No
[2018-04-07] MEDS: ALTEPLASE 5 MG in NS 100 ML IV SCH ×3 (13:23→22:36)
[2018-04-07] MEDS ORDERED: IOPAMIDOL (ISOVUE-300) 100 ML BTL ONE (13:28)
[2018-04-07] MEDS ORDERED: LIDOCAINE 1% 300 MG/30 ML SDV ONE (13:35)
[2018-04-07] MEDS: NS 1,000 ML IV SCH (21:18)
[2018-04-07] MEDS ORDERED: ALTEPLASE 5 MG in NS 100 ML IV SCH (21:26)
[2018-04-07] MEDS: OXYCODONE/APAP 5/325 TAB PO PRN (22:39)
[2018-04-07 22:53] LABS: PLATELET COUNT 143 10^3/uL (150-400)
[2018-04-08] MEDS: NS 1,000 ML IV SCH ×2 (06:16→18:08)
[2018-04-08] MEDS: lamoTRIgine 100 MG TAB PO SCH (09:26)
[2018-04-08] MEDS: SERTRALINE HCL 100 MG TAB PO SCH (09:27)
[2018-04-08] MEDS: METOPROLOL TARTRATE 50 MG TAB PO SCH (09:27)
[2018-04-08] MEDS: OXYCODONE/APAP 5/325 TAB PO PRN ×2 (09:28→20:38)
[2018-04-08] MEDS: PREGABALIN 100 MG CAP PO SCH ×2 (09:28→20:39)
[2018-04-08] MEDS: busPIRone 10 MG TAB PO SCH ×2 (09:28→20:38)
[2018-04-08] MEDS: clonazePAM 0.5 MG TAB PO SCH ×3 (09:29→20:38)
[2018-04-08] MEDS: DESMOPRESSIN 0.1 MG TAB PO SCH ×2 (09:29→20:39)
[2018-04-08] MEDS: ALTEPLASE 5 MG in NS 100 ML IV SCH (09:40)
[2018-04-08 09:42] LABS: PLATELET COUNT 133 10^3/uL (150-400)
[2018-04-08] MEDS ORDERED: MIDAZOLAM 2 MG/2 ML VIAL IVP PRN (14:11)
[2018-04-08] MEDS ORDERED: ALTEPLASE 2 MG VIAL IVP PRN (14:11)
[2018-04-08] MEDS ORDERED: fentaNYL 100 MCG/2 ML INJ IVP PRN (14:11)
[2018-04-08] MEDS ORDERED: FLUMAZENIL 0.5 MG/5 ML MDV IVP PRN (14:11)
[2018-04-08] MEDS ORDERED: HEPARIN 10,000 UNIT/10 ML MDV (1,000 UNIT/ML) IVP PRN (14:11)
[2018-04-08] MEDS ORDERED: PROTAMINE SULFATE 50 MG/5 ML VIAL IVP PRN (14:11)
[2018-04-08] MEDS ORDERED: MEPERIDINE 25 MG/ML SYR IVP PRN (14:11)
[2018-04-08] MEDS ORDERED: NALOXONE HCL 0.4 MG/ML INJ IVP PRN (14:11)
[2018-04-08] MEDS ORDERED: GLUCAGON HCL 1 MG VIAL IVP PRN (14:11)
[2018-04-08] MEDS ORDERED: NALOXONE HCL 0.4 MG/ML INJ ONE (14:31)
[2018-04-08] MEDS ORDERED: MIDAZOLAM 2 MG/2 ML VIAL ONE ×4 (14:32→17:29)
[2018-04-08] MEDS ORDERED: fentaNYL 100 MCG/2 ML INJ ONE ×3 (14:32→17:29)
[2018-04-08] MEDS ORDERED: FLUMAZENIL 0.5 MG/5 ML MDV IVP ONE (14:32)
[2018-04-08] MEDS ORDERED: IOPAMIDOL (ISOVUE-300) 100 ML BTL ONE ×3 (14:52→20:00)
--- NOTE | 2018-04-08 15:03 | HOSPPROG ---
Hospitalist Progress Note Assessment/Plan: #DVT (deep venous thrombosis) -catheter guided thrombolysis #P.E. #possible May Thurner Syndrome #Hypotension while getting thrombolysis -will stop Metoprolol. she did not get this mornings dose #Leukocytosis, likely reactive #Acute Kidney Injury, resolved #Hyperkalemia, resolved #History of diabetes insipidus Plan: Fibrinogen level went down substantially and thrombolysis was held temporarily. It is running again. She will go to IR again this afternoon for re-evaluation She is NPO Cont IVF Recheck CBC and BMP tomorrow Cont ICU care for now Heparin once indicated total critical care time is 30 minutes in this patient needing ICU care with active catheter guided thrombolysis for profound DVT, and hypotension Subjective: will go back to IR today. no cp or sob. no n/v Objective: Vital Signs Temp Pulse Resp BP Pulse Ox 36.8 C 71 18 111/59 L 96 04/08/18 14:13 04/08/18 14:13 04/08/18 14:13 04/08/18 14:13 04/08/18 14:13 Laboratory Results 04/08/18 13:00 04/07/18 04:27 04/07/18 04/08/18 04/09/18 05:59 05:59 05:59 Intake Total 1000 3912.6 Output Total 1725 Balance 1000 2187.6 PT 15.9 SEC (12.0-15.0) H 04/07/18 08:45 INR 1.25 (0.83-1.16) H 04/07/18 08:45 - Physical Exam Constitutional: no apparent distress Eyes: PERRL, EOMI Ears, Nose, Mouth, Throat: moist mucous membranes, hearing normal Cardiovascular: regular rate and rhythym, No edema Respiratory: no respiratory distress, no rales or rhonchi, clear to auscultation Gastrointestinal: normoactive bowel sounds, soft, non-tender abdomen Skin: warm Neurologic: AAOx3 Psychiatric: interacting appropriately, not anxious, not encephalopathic Lymph, Heme, Immunologic: No petechiae ICD10 Worksheet Patient Problems: Problems Problem Status Onset DVT (deep venous thrombosis) Acute History of diabetes insipidus Acute Benzodiazepine withdrawal Acute Migraine Acute
[2018-04-08] MEDS ORDERED: ALTEPLASE 10 MG in NS 100 ML IV ONE (16:00)
[2018-04-08] MEDS ORDERED: ATROPINE SULFATE 1 MG/ML VIAL ONE (16:14)
[2018-04-08] MEDS ORDERED: hydrALAZINE 20 MG/ML VIAL ONE (16:38)
[2018-04-08] MEDS ORDERED: LIDOCAINE 1% 300 MG/30 ML SDV ONE (17:49)
--- NOTE | 2018-04-08 18:29 | PDRADPN ---
Radiology Procedure Note Date of Procedure: 04/08/18 Radiologist: Joy Kincaid Anesthesia: IV Sedation Pre-op Diagnosis: Saúl Post-op Diagnosis: Same Procedure: Day 2 thrombolysis, thrombectomy, and stent placement Inf/Abcess present in the surg proc area at time of surgery?: No
[2018-04-08] MEDS ORDERED: ATROPINE SULFATE 1 MG/10 ML SYR ONE (19:45)
[2018-04-08] MEDS ORDERED: ENOXAPARIN 60 MG/0.6 ML SYR SC SCH ×2 (20:00)
[2018-04-08] MEDS: ENOXAPARIN 80 MG/0.8 ML SYR SC SCH (20:39)
[2018-04-09] MEDS: NS 1,000 ML IV SCH (05:25)
[2018-04-09] MEDS: OXYCODONE/APAP 5/325 TAB PO PRN ×2 (05:38→18:16)
[2018-04-09 06:44] LABS: PLATELET COUNT 131 10^3/uL (150-400)
[2018-04-09] MEDS ORDERED: PROTOCOL POTASSIUM 1 DOSE MISC PRN (08:29)
[2018-04-09] MEDS ORDERED: PROTOCOL MAGNESIUM 1 DOSE IV PRN (08:29)
--- NOTE | 2018-04-09 08:33 | HOSPPROG ---
Hospitalist Progress Note Assessment/Plan: #DVT (deep venous thrombosis) -catheter guided thrombolysis #P.E. #possible May Thurner Syndrome #Hypotension while getting thrombolysis -will stop Metoprolol. she did not get this mornings dose #Leukocytosis, likely reactive, resolved #Acute Kidney Injury, resolved #Hyperkalemia, resolved #Hypokalemia #thrombocytopenia, mild #Hyponatremia #History of diabetes insipidus Plan: -If OK with ICU team, transfer to med surg today -Pull radford -Stop IVF -cont Lovenox BID. She is looking into her insurance benefits to determine which anticoagulant to start -monitor platelets closely -replace K per protocol -Regular diet Dispo: d/c soon pending clinical course and initiation of oral anticoagulation. Subjective: no cp or sob. eating. no n/v Objective: Vital Signs Temp Pulse Resp BP Pulse Ox 36.7 C 88 16 108/53 L 97 04/09/18 07:35 04/09/18 07:35 04/09/18 07:35 04/09/18 07:35 04/09/18 07:35 Laboratory Results 04/09/18 05:30 04/09/18 05:30 04/08/18 04/09/18 04/10/18 05:59 05:59 05:59 Intake Total 3912.6 3093 Output Total 1725 4110 Balance 2187.6 -1017 PT 15.9 SEC (12.0-15.0) H 04/07/18 08:45 INR 1.25 (0.83-1.16) H 04/07/18 08:45 - Physical Exam Constitutional: no apparent distress Eyes: PERRL, EOMI Ears, Nose, Mouth, Throat: moist mucous membranes, hearing normal Cardiovascular: regular rate and rhythym, No edema Respiratory: no respiratory distress, no rales or rhonchi, clear to auscultation Gastrointestinal: normoactive bowel sounds, soft, non-tender abdomen Skin: warm Neurologic: AAOx3 Psychiatric: interacting appropriately, not anxious, not encephalopathic Lymph, Heme, Immunologic: No petechiae ICD10 Worksheet Patient Problems: Problems Problem Status Onset DVT (deep venous thrombosis) Acute History of diabetes insipidus Acute Benzodiazepine withdrawal Acute Migraine Acute
[2018-04-09] MEDS: busPIRone 10 MG TAB PO SCH ×2 (09:11→21:20)
[2018-04-09] MEDS: PREGABALIN 100 MG CAP PO SCH (09:11)
[2018-04-09] MEDS: lamoTRIgine 100 MG TAB PO SCH (09:11)
[2018-04-09] MEDS: clonazePAM 0.5 MG TAB PO SCH ×3 (09:11→21:20)
[2018-04-09] MEDS: SERTRALINE HCL 100 MG TAB PO SCH (09:11)
[2018-04-09] MEDS: ENOXAPARIN 80 MG/0.8 ML SYR SC SCH ×2 (09:12→21:22)
[2018-04-09] MEDS ORDERED: POTASSIUM CL 10 MEQ TAB PO ONE (09:32)
[2018-04-09] MEDS ORDERED: MAGNESIUM SULF 1 GM/DEXTROSE 100 ML IV ONE (10:17)
[2018-04-09] MEDS: DESMOPRESSIN 0.1 MG TAB PO SCH ×2 (10:19→21:21)
[2018-04-09] MEDS ORDERED: MAGNESIUM HYDROXIDE 30 ML UDCUP PO PRN (10:58)
[2018-04-09] MEDS ORDERED: BISACODYL 10 MG SUPP PR PRN (10:58)
[2018-04-09] MEDS ORDERED: LACTULOSE 20 GM/30 ML UDCUP PO PRN (10:58)
[2018-04-09] MEDS ORDERED: POLYETHYLENE GLYCOL 3350 17 GM PKT PO PRN (10:58)
[2018-04-09] MEDS: SENNOSIDES/DOCUSATE SODIUM TAB PO SCH ×2 (14:14→21:20)
[2018-04-09] MEDS ORDERED: POTASSIUM CL 20 MEQ TAB PO ONE (20:30)
[2018-04-09] MEDS: PREGABALIN 50 MG CAP PO SCH (21:20)
[2018-04-09] MEDS: ZOLPIDEM TARTRATE 5 MG TAB PO PRN (21:20)
[2018-04-10] MEDS: SENNOSIDES/DOCUSATE SODIUM TAB PO SCH (10:05)
[2018-04-10] MEDS: SERTRALINE HCL 100 MG TAB PO SCH (10:05)
[2018-04-10] MEDS: PREGABALIN 50 MG CAP PO SCH (10:06)
[2018-04-10] MEDS: DESMOPRESSIN 0.1 MG TAB PO SCH (10:06)
[2018-04-10] MEDS: ENOXAPARIN 80 MG/0.8 ML SYR SC SCH (10:06)
[2018-04-10] MEDS: busPIRone 10 MG TAB PO SCH (10:06)
[2018-04-10] MEDS: clonazePAM 0.5 MG TAB PO SCH ×2 (10:06→13:41)
--- NOTE | 2018-04-10 10:27 | ASMTCMCOM ---
CM Note CM Note Notes: Pt had her PT and OT evals completed. Both state that there are no identified needs and home independently is the recommendation. Date Signed: 04/10/2018 10:26 AM Electronically Signed By:Tierra Fong
--- NOTE | 2018-04-10 10:29 | HOSPPROG ---
Hospitalist Progress Note Assessment/Plan: 57-year-old admitted with left lower extremity swelling, diagnosed with DVT on admission # DVT, likely May-Thurner Syndrome with subsequent PE. Status post stent and thrombolysis * Ongoing anticoagulation with Xarelto * Patient receive Lovenox this morning will start tonight # tachycardia today, patient asymptomatic. Her recent discontinuation of her metoprolol due to hypotension. Will resume and follow-up blood pressure # hypotension while getting thrombolysis and metoprolol was stopped. Will resume that will likely help her tachycardia # acute kidney injury, resolved # history of diabetes insipidus # history of significant anxiety disorder, resume her medications # mild hyponatremia Subjective: Patient feels okay, swelling down. She denies any significant symptoms with her tachycardia. She is quite anxious however. Objective: Vital Signs Temp Pulse Resp BP Pulse Ox 36.8 C 81 17 132/69 H 95 04/10/18 07:35 04/10/18 07:35 04/10/18 07:35 04/10/18 07:35 04/10/18 07:35 Laboratory Results 04/10/18 05:15 04/10/18 05:15 04/09/18 04/10/18 04/11/18 05:59 05:59 05:59 Intake Total 3093 740 Output Total 4110 350 Balance -1017 390 PT 15.9 SEC (12.0-15.0) H 04/07/18 08:45 INR 1.25 (0.83-1.16) H 04/07/18 08:45 - Physical Exam Constitutional: no apparent distress, appears nourished Eyes: PERRL Ears, Nose, Mouth, Throat: moist mucous membranes Cardiovascular: tachycardia Respiratory: no respiratory distress, clear to auscultation Gastrointestinal: normoactive bowel sounds, soft, non-tender abdomen Genitourinary: no bladder fullness Skin: warm Musculoskeletal: No asymmetric calves Neurologic: AAOx3 Psychiatric: interacting appropriately, anxious ICD10 Worksheet Patient Problems: Problems Problem Status Onset Benzodiazepine withdrawal Acute Migraine Acute DVT (deep venous thrombosis) Acute History of diabetes insipidus Acute
[2018-04-10] MEDS ORDERED: METOPROLOL TARTRATE 50 MG TAB PO SCH (10:30)
[2018-04-10] MEDS ORDERED: POTASSIUM CL 10 MEQ TAB PO ONE (11:02)
[2018-04-10] MEDS: lamoTRIgine 100 MG TAB PO SCH (11:16)
[2018-04-10 15:28] VITALS: BP 149/70
--- NOTE | 2018-04-10 15:35 | GDS ---
[f rep st] DISCHARGE SUMMARY DIAGNOSES: 1. Deep vein thrombosis, likely May-Thurner syndrome with subsequent pulmonary embolus, status post stent and thrombolysis. Will need oral anticoagulation. 2. Intermittent tachycardia, resolved. 3. Hypertension. 4. Acute kidney injury, resolved. 5. History of diabetes insipidus. 6. History of anxiety. 7. Mild hyponatremia. PROCEDURES DONE: 1. Aortic runoff CT angiogram. 2. Echocardiogram, normal global left ventricular function with an ejection fraction of 61%. Normal right ventricular function with right ventricular systolic pressure of 28. 3. Peripherally-inserted central catheter line insertion. 4. Extremity venous ultrasound with venogram showing occlusive and nonocclusive thrombus in the left lower extremity. 5. Angioplasty and stent placement. CONSULTATIONS: Include interventional radiology Dr. Joy Kincaid. HOSPITAL COURSE: The patient is a 57-year-old who came in with increasing swelling of her left lower extremity. On admission, she had a CTA as well as ultrasounds that showed a left lower extremity DV T with occlusion and possibly secondary to May-Thurner syndrome. Interventional Radiology was consul marifer. They did a venogram confirming a diagnosis, placed a stent, and did thrombolysis to relieve the clot. She has done well post procedure to a point where her legs show minimal increased edema rebecca red to the right leg. She has no other symptoms from her pulmonary embolism and is ready for dischar ge home. CONDITION ON DISCHARGE: Good. PHYSICAL EXAMINATION: VITAL SIGNS: Stable. She is alert and oriented. Heart rate is 80, blood pre ssure 118/59. DISCHARGE MEDICATIONS: Please see discharge medication form. She will be discharged on Xarelto. I am checking with her insurance to make sure this is covered. If not, she will be discharged on Eliqu is and that can be transitioned over as an outpatient to either warfarin or another agent that is cov ered. FOLLOWUP INSTRUCTIONS: She needs to follow up with her primary care provider within 1-2 weeks. Total time spent with patient on day of discharge and coordination of care is 35 minutes. /[id number]/MODL
--- NOTE | 2018-04-10 17:00 | ASMTDCNOTE ---
Case Management Discharge Discharge Order Complete? Answers: Yes Patient to Obtain Answers: Independently Medications Transportation Arranged Answers: Family/Friends Discharge Comments Notes: Pt D/C home independently. No CM needs identified. Date Signed: 04/10/2018 04:59 PM Electronically Signed By:Tierra Fong
--- NOTE | 2018-04-10 17:01 | ASMTLACE ---
LACE Length of stay for Answers: 3 days current admission Acuity / Level of Answers: Yes Care: Did the patient have an inpatient admission? Comorbidities - select Answers: Diabetes (uncontrolled or all that apply controlled) Other Notes: HTN # of Emergency department Answers: 1-2 visits in the last 6 months Social determinants Answers: Mental health diagnosis (anxiety, depression, pers onality disorders, etc.) Score: 12 Date Signed: 04/10/2018 05:00 PM Electronically Signed By:Tierra Fong
--- NOTE | 2018-04-13 10:06 | ASMTCMCOM ---
CM Note CM Note Notes: This is a late entry from Tuesday, 04/10. Met with this patient to discuss discharge planning. Patient will d/c home without any needs. Prescriptions were sent to [facility], per MD request, confirmed no prior auth needed. Plan: Home Independently Date Signed: 04/13/2018 10:05 AM Electronically Signed By:Bonita Christian RN
== END 2018-04-10 16:40 | disposition home or self-care (01) | DRG 270 ==
LOC: OBSVTOIN 16:45 → F3E 17:37 → F2N 04-07 13:37 → F1N 04-09 15:33
PROVIDERS: ADMIT Family Medicine; ATTEND Internal Medicine
PROC: 06CN3ZZ Extirpation of Matter from Left Femoral Vein, Percutaneous Approach (ICD-10-PCS; 2018-04-07)
PROC: B41G1ZZ Fluoroscopy of Left Lower Extremity Arteries using Low Osmolar Contrast (ICD-10-PCS; 2018-04-07)
PROC: 3E03317 Introduction of Other Thrombolytic into Peripheral Vein, Percutaneous Approach (ICD-10-PCS; 2018-04-07)
PROC: 02HV33Z Insertion of Infusion Device into Superior Vena Cava, Percutaneous Approach (ICD-10-PCS; 2018-04-07)
PROC: 06CN3ZZ Extirpation of Matter from Left Femoral Vein, Percutaneous Approach (ICD-10-PCS; principal; 2018-04-08)
PROC: 067D3DZ Dilation of Left Common Iliac Vein with Intraluminal Device, Percutaneous Approach (ICD-10-PCS; principal; 2018-04-08)
PROC: B51C1ZZ Fluoroscopy of Left Lower Extremity Veins using Low Osmolar Contrast (ICD-10-PCS; principal; 2018-04-08)
DX: I82.432 Acute embolism and thrombosis of left popliteal vein (principal); I26.99 Other pulmonary embolism without acute cor pulmonale; I82.220 Acute embolism and thrombosis of inferior vena cava; N17.9 Acute kidney failure, unspecified; R00.0 Tachycardia, unspecified; I95.89 Other hypotension; E87.5 Hyperkalemia; F41.8 Other specified anxiety disorders; E11.9 Type 2 diabetes mellitus without complications; Z88.2 Allergy status to sulfonamides; Z88.1 Allergy status to other antibiotic agents
CPT/HCPCS: 85520-90; 96365; 97116-GP; 97161-GP; 97165-GO; 97530-GP; 97535-GO; C1725; C1751; C1757; C1769; C1876; C1894; J0360; J0461; J1644; J1650; J2250; J2270; J2310; J2997; J3010; J3475; P9012; P9016; Q9967